=== PATIENT | female | born 1985 | race Caucasian/White ===

== ENCOUNTER 2019-06-09 17:01 | Emergency (ER) | payer OTHER, SELFPAY ==
--- NOTE | ~2019-06-09 | XR_ITS ---
XR ankle RT min 3V DATE: 06/09/2019 17:24 INDICATION: Rolled right ankle 2 days ago. Lateral pain. TECHNIQUE: 4 views COMPARISON: None FINDINGS: There is prominent lateral soft tissue swelling of the right ankle. There is cortical avuls ion fracture of uncertain age at the lower aspect of lateral malleolus, likely recent. Otherwise no f racture or dislocation of the ankle or disruption of the ankle mortise is detected. IMPRESSION: Cortical avulsion fracture of the inferior aspect of the lateral malleolus, likely recent , with prominent overlying soft tissue swelling Reviewed, dictated and finalized at location B. [employer] IMPRESSION: Cortical avulsion fracture of the inferior aspect of the lateral ma lleolus, likely recent, with prominent overlying soft tissue swelling
[2019-06-09 17:18] VITALS: BP 118/74; PULSE 79; RESP 20; TEMP 36.6; O2SAT 99
--- NOTE | 2019-06-09 17:24 | ED.LOWEXIN ---
HPI - Extremity Injury (Lower) General Chief Complaint: Extremity Injury, Lower Stated Complaint: R/ankle swollen Time Seen by Provider: 06/09/19 17:30 Source: patient and RN notes reviewed Mode of arrival: ambulatory Limitations: no limitations History of Present Illness HPI Narrative: 33-year-old female presents with concern for right ankle injury. Reports she rolled her ankle on Saturday. Reports previous ligament injury with surgery in that ankle. Reports she has been weightbearing since Saturday with some pain. MD complaint: ankle injury Related Data Home Medications Medication Instructions Recorded Confirmed norethindrone (contraceptive) 0.35 mg DAILY 06/09/19 06/09/19 [Daksha] Allergies Allergy/AdvReac Type Severity Reaction Status Date / Time hydromorphone Allergy Unknown itching Verified 02/08/19 13:02 morphine Allergy Unknown Other Verified 02/08/19 13:02 Review of Systems Review of Systems: Narrative: CONSTITUTIONAL: Denies malaise, chills, sweats, or fever. CARDIOVASCULAR: Denies chest pain, palpitations RESPIRATORY: Denies dyspnea. SKIN: Reports right ankle swelling MUSCULOSKELETAL: Reports right ankle pain NEUROLOGIC: Denies numbness, weakness. All systems reviewed & are unremarkable except as noted in HPI and below PMFSH Social History Social History Gender identity (if verbalized by the patient): Female Comments At time of signature, agree with nursing past medical, surgical, social and family history. There is no relevant family history pertinent to the presenting complaint Exam Narrative: Exam Narrative: GENERAL: Well-appearing, well-nourished, and in no acute distress. HEAD: Normocephalic, atraumatic. EYES: PERRLA, conjunctivae clear NECK: Supple. CHEST: Speaks in full sentences. No respiratory distress. HEART: Regular rate and rhythm. Normal and equal peripheral pulses. EXTREMITIES: Right ankle, digits of right foot have normal strength and sensation, normal range of motion. Moderate lateral ankle edema, tenderness. 5/5 strength with ankle, digits flexion and extension. Normal sensation with sensitivity to light touch and pain. No open wounds, no skin tenting, no devitalized tissue or atrophy, no trophic changes, no ecchymosis, no obvious deformity, alignment normal, no point tenderness, nearby joints and structures intact. Distal pulses palpable and equal bilaterally, skin warm, dry, pink. Capillary refill less than 3 seconds. SKIN: Warm, dry, no rash. NEURO: Alert and oriented x3. PSYCH: Normal mood and affect Course Course Emergency Course: Discussed options with patient regarding ankle rest. Patient reports she is unable to be nonweightbearing due to having 2 small children. Reports with this injury in the past she has used a boot. She prefers to use a boot. Patient is aware of diagnosis, understands and agrees to treatment plan. Anticipatory guidance given. Patient agrees to follow-up as directed and is aware of reasons to seek care at the emergency department. Portions of this record may have been created with voice recognition software Vital Signs Vital signs: Vital Signs Temperature 98 F 06/09/19 17:18 Pulse Rate 79 06/09/19 17:18 Respiratory Rate 20 06/09/19 17:18 Blood Pressure 118/74 06/09/19 17:18 Pulse Oximetry 99 06/09/19 17:18 Temperature 98 F 06/09/19 17:18 Pulse Rate 79 06/09/19 17:18 Respiratory Rate 20 06/09/19 17:18 Blood Pressure 118/74 06/09/19 17:18 Pulse Oximetry 99 06/09/19 17:18 Reviewed. MDM - Extremity Injury (Lower) MDM Narrative Medical decision making narrative: Patients injury and pain is consistent with musculoskeletal etiology. No signs of neurological or vascular compromise on exam. Compartments and tissues are soft without signs of compartment syndrome. Pain is felt appropriate for further evaluation on an outpatient basis. Differential Diagnosis Differential diagnosis: Likely ankle sprain and strain and
== END 2019-06-09 17:45 | disposition home or self-care (01) ==
PROVIDERS: Emergency Provider Nurse Practitioner; PCP Nurse Practitioner Family
DX: S82.61XA Displaced fracture of lateral malleolus of right fibula, initial encounter for closed fracture (principal); X50.9XXA Other and unspecified overexertion or strenuous movements or postures, initial encounter; E28.2 Polycystic ovarian syndrome; M06.9 Rheumatoid arthritis, unspecified
CPT/HCPCS: 73610; 99213; G0463

== ENCOUNTER 2021-07-18 13:51 | Emergency (ER) | payer OTHER, SELFPAY ==
--- NOTE | ~2021-07-18 | US_ITS ---
EXAMINATION: US venous doppler LE RT DATE: 07/18/2021 14:21 INDICATION: Right calf pain. TECHNIQUE: Grayscale ultrasound images without and with compression and Doppler ultrasound images of the right lower extremity veins were obtained. COMPARISON: None. FINDINGS: The visualized portions of right common femoral vein, profunda (deep) femoral vein, femoral vein, pop liteal vein, peroneal veins, posterior tibial veins, and greater saphenous vein outflow are patent. IMPRESSION: 1. No deep venous thrombosis. Reviewed, dictated and finalized at location A.
--- NOTE | ~2021-07-18 | XR_ITS ---
EXAMINATION: XR chest 2V DATE: 07/18/2021 14:28 INDICATION: Chest pain. TECHNIQUE: Frontal and lateral views of the chest were obtained. COMPARISON: None. FINDINGS: The chest demonstrates clear lungs without pneumonia, pleural effusion, or pneumothorax. Th e heart size is normal. IMPRESSION: 1. No acute cardiopulmonary disease. Reviewed, dictated and finalized at location A.
--- NOTE | 2021-07-18 13:58 | ED.EXTPRO ---
HPI - Extremity Problem General Chief complaint: Extremity Problem,Nontraumatic Stated complaint: calf pain Time Seen by Provider: 07/18/21 13:58 Source: patient Mode of arrival: ambulatory Limitations: no limitations History of Present Illness HPI Narrative: Patient is a 35-year-old female with a history of DVT/PE, anxiety, presenting to the emergency department for evaluation of right calf pain. Patient states that she has had no recent injury or trauma to the right lower extremity but reports a dull, aching right calf pain over the past 72 hours that has been somewhat persistent. She denies any muscle contraction. Denies any bruising, redness or warmth. Patient states that she began to develop panicky chest pain this morning due to the concern that she may have a DVT. Patient reports frontal chest pressure without radiation to the back, jaw, neck. No ripping or tearing sensation to the abdomen or flank. No associated nausea, vomiting, diaphoresis. Patient states that she feels very significantly anxious currently. Patient denies any cough, hemoptysis, pleuritic pain, shortness of breath. Patient states that her initial DVT/PE was provoked to an ankle surgery that left her very immobile for 2 weeks. 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 Patient states that she does not take control, does not smoke, and has not required recurrent anticoagulation. Related Data Home Medications Medication Instructions Recorded Confirmed drospirenone (contraceptive) 4 mg 4 mg PO DAILY 07/13/20 (28) tablet naproxen sodium 220 mg tablet 220 mg PO BID PRN 07/13/20 omeprazole 20 mg tablet,delayed 20 mg PO DAILY 07/13/20 release Allergies Allergy/AdvReac Type Severity Reaction Status Date / Time hydromorphone Allergy Unknown itching Verified 02/08/19 13:02 morphine Allergy Unknown Other Verified 02/08/19 13:02 Review of Systems Review of Systems: CONSTITUTIONAL: Denies fever, chills, or sweats. EYES: Denies visual changes, redness, or discharge. ENT: Denies rhinorrhea, congestion, sore throat, or otalgia. CARDIOVASCULAR: Reports chest pain t his morning, denies palpitations, or edema. RESPIRATORY: Denies cough or dyspnea. Denies hemoptysis. Denies pleuritic pain. GASTROINTESTINAL: Denies abdominal pain, nausea, vomiting, or diarrhea. GENITOURINARY: Denies dysuria or hematuria. SKIN: Denies rash or itching. MUSCULOSKELETAL: Denies back pain, joint pain, reports right calf pain NEUROLOGIC: Denies headache, numbness, or weakness. PSYCH: Reports anxiety PMFSH Past Medical History Medical History Anxiety Arthritis GERD (gastroesophageal reflux disease) SHAYLA (obstructive sleep apnea) Surgical History Surgical History (Updated 07/13/20 @ 14:31 by Mildred Hicks [facility]) History of ankle surgery Family History Family History Mother Osteoarthritis Hypertension Father SHAYLA (obstructive sleep apnea) ALS (amyotrophic lateral sclerosis) Grandparent Osteoporosis History of kidney cancer Heart disease Social History Social History Smoking status: Never smoker Alcohol intake: current Drinks per week: 3 Substance use: never Substance use type: does not use Gender identity (if verbalized by the patient): Female Exam Narrative: GENERAL: Awake, alert, conversant HEAD: Normocephalic, atraumatic. EYES: PERRLA and EOMI. ENT: Nares clear, no rhinorrhea or epistaxis. Mucous membranes moist. NECK: Supple. CHEST: No respiratory distress, breathing even and non labored, no chest wall pain HEART: Regular rate, sinus rhythm ABDOMEN: Obese, Non distended, non tender EXTREMITIES: Normal range of motion. No pitting edema. No reproducible calf
--- NOTE | 2021-07-18 14:13 | PC.NURSE ---
pt in ultrasound at this time.
[2021-07-18 14:29] VITALS: BP 143/80; PULSE 96; RESP 16; TEMP 36.5; O2SAT 99
[2021-07-18 14:48] LABS: Basophils Absolute Auto 0.1 K/mm3 (0.0-0.1); Basophils Percent Auto 0.4 % (0.2-1.2); Eosinophils Absolute Auto 0.2 K/mm3 (0-0.3); Eosinophils Percent Auto 1.3 % (0-4.4); Hematocrit 38.8 % (37.0-47.0); Immature Granulocyte Absolute 0.05 K/mm3 (0.00-0.031); Immature Granulocyte Percent A 0.4 % (0-0.5); Lymphocytes Percent Auto 33.3 % (18.3-44.2); Mean Corpuscular HGB Conc 30.9 g/dl (32-36); Mean Corpuscular Hemoglobin 24.7 pg (26-34); Mean Platelet Volume 9.1 fl (7.4-10.4); Monocytes Absolute Auto 0.6 K/mm3 (0.1-0.6); Monocytes Percent Auto 4.8 % (2.6-8.5); Neutrophils Absolute Auto 7.7 K/mm3 (1.3-6.7); Neutrophils Percent Auto 59.8 % (45.5-73.1); Platelet Count Result 433 k/mm3 (150-375); Red Blood Count 4.85 M/mm3 (4.2-5.4); Red Cell Distribution Width 13.4 % (11.5-14.5); White Blood Count 12.9 K/mm3 (4.5-10.0)
[2021-07-18 15:07] LABS: D Dimer 0.47 ug/mL (<0.48)
[2021-07-18 15:10] LABS: Troponin I < 0.012 ng/mL (0.000-0.034)
[2021-07-18 16:22] VITALS: BP 133/93; PULSE 92; RESP 16; O2SAT 98
== END 2021-07-18 16:25 | disposition home or self-care (01) ==
LOC: ANHED 15:43
PROVIDERS: Emergency Provider Emergency Medicine; PCP Nurse Practitioner Family
DX: M79.661 Pain in right lower leg (principal); R07.89 Other chest pain; M19.90 Unspecified osteoarthritis, unspecified site; G47.33 Obstructive sleep apnea (adult) (pediatric); K21.9 Gastro-esophageal reflux disease without esophagitis; Z86.718 Personal history of other venous thrombosis and embolism; Z86.711 Personal history of pulmonary embolism
CPT/HCPCS: 36415; 71046; 84484; 85025; 85380; 93971; 99284

== ENCOUNTER 2022-08-04 16:16 | Emergency (ER) | payer OTHER, SELFPAY ==
--- NOTE | ~2022-08-04 | XR_ITS ---
EXAMINATION: XR elbow RT min 3V DATE: 08/04/2022 16:36 INDICATION: Right elbow pain post fall TECHNIQUE: Anteroposterior, two oblique and lateral views of the right elbow were obtained. COMPARISON: None. FINDINGS: Alignment is normal. No fracture or joint effusion. Joint spaces are normal. Soft tissues are unremar kable. IMPRESSION: 1. Negative right elbow radiographs. Reviewed, dictated and finalized at location A.
--- NOTE | ~2022-08-04 | XR_ITS ---
EXAMINATION: XR shoulder RT min 2V DATE: 08/04/2022 16:36 INDICATION: Right shoulder pain post fall TECHNIQUE: AP internally rotated, AP oblique externally rotated and transscapular Y views of the righ t shoulder were obtained. COMPARISON: None FINDINGS: Normal alignment. No fracture. Glenohumeral joint is normal. Acromioclavicular joint is normal. Soft tissues are unremarkable. Right lung is clear. IMPRESSION: Negative right shoulder radiographs. Reviewed, dictated and finalized at location A.
[2022-08-04 16:24] VITALS: BP 118/78; PULSE 111; RESP 16; TEMP 36.6; O2SAT 100
--- NOTE | 2022-08-04 16:29 | ED.UPPEXIN ---
HPI - Extremity Injury (Upper) General Chief Complaint: Extremity Injury, Upper Stated Complaint: rt elbow/shoulder injury Time Seen by Provider: 08/04/22 16:31 Source: patient, family, RN notes reviewed and old records reviewed Mode of arrival: ambulatory Limitations: no limitations History of Present Illness HPI narrative: 36 year old female accompanied by spouse presents to express care with complaints of pain to her right shoulder and right elbow area after falling down the step at home today about one hour ago.. Patient states that she missed a step and fell down about 12 steps, states she tucked and rolled, denies hitting her head or any feelings of dizziness prior to fall, no LOC.. Patient has bruising and soreness to right elbow with mild swelling noted and also pain to right shoulder with some mild bruising noted. Patient is not on any blood thinners. MD complaint: injury to: right, shoulder and elbow Onset (ago): hour(s) (1 hour ago) Place: home Severity scale (1-10): 5 Exacerbating factors: movement of extremity Related Data Home Medications Medication Instructions Recorded Confirmed drospirenone (contraceptive) 4 mg 4 mg PO DAILY 07/13/20 08/04/22 (28) tablet (Slynd) omeprazole 20 mg tablet,delayed 20 mg PO DAILY 07/13/20 08/04/22 release lisdexamfetamine 40 mg capsule 40 mg PO DAILY 08/04/22 08/04/22 (Vyvanse) spironolactone 100 mg tablet 100 mg PO DAILY 08/04/22 08/04/22 Allergies Allergy/AdvReac Type Severity Reaction Status Date / Time hydromorphone Allergy Unknown itching Verified 08/04/22 17:03 morphine Allergy Unknown Other Verified 08/04/22 17:03 Review of Systems Review of Systems: CONSTITUTIONAL: Denies fever, chills, or sweats. EYES: Denies visual changes, redness, or discharge. ENT: Denies rhinorrhea, congestion, sore throat, or otalgia. CARDIOVASCULAR: Denies chest pain, palpitations, or edema. RESPIRATORY: Denies cough or dyspnea. GASTROINTESTINAL: Denies abdominal pain, nausea, vomiting, or diarrhea. GENITOURINARY: Denies dysuria or hematuria. SKIN: Denies rash or itching. MUSCULOSKELETAL: Denies back pain,positive for right shoulder discomfort and also right elbow pain, or myalgia. NEUROLOGIC: Denies headache, numbness, or weakness. PSYCHIATRIC: Denies anxiety or depression. All systems reviewed & are unremarkable except as noted in HPI and below PMFSH Past Medical History Medical History Anxiety Arthritis DVT (deep venous thrombosis) GERD (gastroesophageal reflux disease) SHAYLA (obstructive sleep apnea) Surgical History Surgical History History of ankle surgery bilateral Family History Family History Mother Osteoarthritis Hypertension Father SHAYLA (obstructive sleep apnea) ALS (amyotrophic lateral sclerosis) Grandparent Osteoporosis History of kidney cancer Heart disease Social History Social History Smoking status: Never smoker Alcohol intake: current Drinks per week: 3 Substance use: never Substance use type: does not use Gender identity (if verbalized by the patient): Female Comments At time of signature, agree with nursing past medical, surgical, social and family history. There is no relevant family history pertinent to the presenting complaint Exam Narrative: GENERAL: Well-appearing, well-nourished, and in no acute distress. HEAD: Normocephalic, atraumatic. EYES: PERRLA and EOMI. ENT: Nares clear, no rhinorrhea or epistaxis. Mucous membranes moist.TM's normal throat pink with no swelling NECK: Supple. no lymphadenopathy CHEST: Clear to auscultation. No respiratory distress.SAO2 100% on room air HEART: Regular rate and rhythm. No murmur heard. Normal peripheral pulses. ABDOMEN: Soft, nontender, nondistended, normal activ
== END 2022-08-04 17:02 | disposition home or self-care (01) ==
PROVIDERS: Emergency Provider Registered Nurse; PCP Nurse Practitioner Family
DX: S59.901A Unspecified injury of right elbow, initial encounter (principal); W10.9XXA Fall (on) (from) unspecified stairs and steps, initial encounter; M25.512 Pain in left shoulder; M19.90 Unspecified osteoarthritis, unspecified site; K21.9 Gastro-esophageal reflux disease without esophagitis; Z86.718 Personal history of other venous thrombosis and embolism
CPT/HCPCS: 73030; 73080; 99214; G0463

== ENCOUNTER → 2022-08-25 08:17 | Outpatient (CLI) | payer OTHER, SELFPAY ==
--- NOTE | ~2022-08-25 | MR_ITS ---
EXAMINATION: MR hand RT wo con DATE: 08/25/2022 09:24 INDICATION: Right thumb injury and pain. TECHNIQUE: Magnetic resonance imaging (MRI) of the right hand was performed without intravenous contr ast. COMPARISON: None. FINDINGS: Bone alignment is normal. No fracture. Bone marrow signal intensity is normal. There is mil d osteoarthritis of first carpometacarpal joint. There are changes of prior sprain of ulnar collatera l ligament at first metacarpophalangeal joint characterized by increased signal intensity. No Stener lesion. The extensor tendons are normal. There is mild flexor tendinopathy of the second digit. The m edian nerve is normal. IMPRESSION: 1. Changes of mild sprain of ulnar collateral ligament at first metacarpophalangeal joint. No Stener lesion. 2. Mild osteoarthritis of first carpometacarpal joint. Reviewed, dictated and finalized at location A. IMPRESSION: 1. Changes of mild sprain of ulnar collateral ligament at first metacarpophalan geal joint. No Stener lesion. 2. Mild osteoarthritis of first carpometacarpal joint.
== END ==
DX: M19.041 Primary osteoarthritis, right hand (principal)
CPT/HCPCS: 73218